=== PATIENT | male | born 1960 | race Caucasian/White ===

== ENCOUNTER → 2022-06-18 | Day surgery (SDC) | payer MEDICARE, MEDICAID ==
[~2022-06-18] MED LIST: Acetaminophen/oxyCODONE 325-5 MG Tab PO PRN; Dexamethasone 4 MG/ML SDV ONE; Glycopyrrolate 0.2 MG/ML SDV ONE; Ketamine 200 MG/20 ML MDV ONE; Ketorolac 30 MG/ML SDV ONE; Labetalol 100 MG/20 ML MDV ONE; Lactated Ringers 1,000 ML IV SCH; Lidocaine 1% with EPINEPHrine 1:100,000 20 ML MDV SUBCUT ONE; Lidocaine 2% 20 ML MDV ONE; Metoclopramide 10 MG/2 ML SDV ONE; Midazolam 1 MG/ML 2 ML SDV ONE; Morphine 2 MG/ML SYRINGE IV PRN; Morphine 4 MG/ML VIAL ONE; Neostigmine Methylsulfate 10 MG/10 ML MDV ONE; Ondansetron 4 MG/2 ML SDV IVPUSH PRN; Ondansetron 4 MG/2 ML SDV ONE; Phenylephrine 1% 10 MG/ML SDV ONE; Propofol 200 MG/20 ML SDV ONE; Rocuronium 50 MG/5 ML Vial ONE; Sodium Chloride 0.9% 10 ML Syringe FLUSH PRN; Succinylcholine 200 MG/10 ML MDV ONE; ceFAZolin 1 GM Vial IVPUSH ONE; ceFAZolin 2 GM Vial IVPUSH ONE; ceFAZolin 2 GM Vial IVPUSH SCH; ePHEDrine 50 MG/ML SDV ONE; fentaNYL 50 MCG/ML SDV ONE
== END | disposition home or self-care (01) ==
LOC: CC.SDS 13:11
PROVIDERS: ATTEND Surgery
DX: K40.90 Unilateral inguinal hernia, without obstruction or gangrene, not specified as recurrent (principal); I10 Essential (primary) hypertension; N40.0 Benign prostatic hyperplasia without lower urinary tract symptoms; E66.9 Obesity, unspecified; Z79.899 Other long term (current) drug therapy; Z98.890 Other specified postprocedural states; Z68.41 Body mass index [BMI] 40.0-44.9, adult
CPT/HCPCS: J0330; J0690; J1100; J1885; J2250; J2270; J2370; J2405; J2704; J2710; J2765; J3010; J3490; J7120

== ENCOUNTER 2022-06-19 08:04 | Observation (INO) | payer MEDICARE, MEDICAID ==
[2022-06-19] MEDS: Lisinopril 10 MG Tab PO SCH (09:26)
[2022-06-19] MEDS: Hydrochlorothiazide 12.5 MG Cap PO SCH (09:26)
[2022-06-19] MEDS ORDERED: Hydrochlorothiazide 25 MG Tab ONE (09:56)
[2022-06-19] MEDS: Acetaminophen/oxyCODONE 325-5 MG Tab PO PRN (12:21)
[2022-06-19] MEDS ORDERED: Aluminum Hydroxide/Magnesium Hydroxide/Simethicone Susp 30 ML Cup PO PRN (13:49)
[2022-06-19] MEDS ORDERED: Bisacodyl 10 MG Supp RECTAL PRN (13:49)
[2022-06-20] MEDS ORDERED: Non-Formulary Medication 1 Each (Lisinopril/Hydrochlorothiazide 1 EACH Tablet) PO SCH (08:00)
[2022-06-20] MEDS: Hydrochlorothiazide 12.5 MG Cap PO SCH (08:04)
[2022-06-20] MEDS: Lisinopril 10 MG Tab PO SCH (08:04)
[2022-06-20] MEDS: Acetaminophen/oxyCODONE 325-5 MG Tab PO PRN (08:05)
== END 2022-06-20 10:25 | disposition home or self-care (01) ==
LOC: UNDOADMOB 08:04 → CC.MS 08:04
PROVIDERS: ADMIT Physician Assistant Medical; ATTEND Physician Assistant Medical
DX: Z48.89 Encounter for other specified surgical aftercare (principal); Z98.890 Other specified postprocedural states; Z87.19 Personal history of other diseases of the digestive system; Z79.899 Other long term (current) drug therapy
CPT/HCPCS: A9270-GY; G0378